=== PATIENT | female | born 1960 | race African-American/Black ===

== ENCOUNTER 2023-03-20 18:50 | Emergency (ER) | payer OTHER | END 2023-03-20 20:02 | disposition home or self-care (01) | LOC: ERS 18:50 | DX: M25.551 Pain in right hip (principal); I10 Essential (primary) hypertension; E11.9 Type 2 diabetes mellitus without complications ==

== ENCOUNTER 2025-05-02 10:47 | Emergency (ER) | payer OTHER | END 2025-05-02 13:45 | disposition home or self-care (01) | LOC: ERS 10:47 | DX: S82.832A Other fracture of upper and lower end of left fibula, initial encounter for closed fracture (principal); S90.01XA Contusion of right ankle, initial encounter; E11.9 Type 2 diabetes mellitus without complications; I10 Essential (primary) hypertension; W01.0XXA Fall on same level from slipping, tripping and stumbling without subsequent striking against object, initial encounter | CPT/HCPCS: 96372; 99283 ==